=== PATIENT | male | born 1955 | race Caucasian/White ===

== ENCOUNTER 2019-01-17 11:48 | Inpatient (IN) | payer MEDICARE, OTHER ==
[~2019-01-17] VITALS: Ht 165.1 cm; Wt 55.2 kg
[2019-01-17] VITALS (7 sets, daily range): BP systolic 105–114; BP diastolic 64–76
[~2019-01-17 11:48] MED LIST: BACL20TA84 PO; GABA-330 PO; HYDR-4383 PO; LEVO50TA67 PO; NAPR-56 PO; SIN25C PO; TRAM50TA2 PO
[2019-01-17] MEDS ORDERED: ipratropium/albuterol 3ml nebule ONE (12:09)
[2019-01-17] MEDS ORDERED: normal saline 1000ML IV soln IVB ONE ×3 (12:10→13:35)
[2019-01-17] MEDS ORDERED: methylPREDNISolone sod succ 125mg/2ml vial IV ONE (12:10)
[2019-01-17] MEDS ORDERED: ipratropium/albuterol 3ml nebule NEB ONE (12:10)
[2019-01-17 12:21] LABS: BASOPHILS % (AUTO) 0.1 % (0-1); EOSINOPHILS % (AUTO) 0 % (0-6); HEMATOCRIT 46.7 % (42.0-52.0); LYMPHOCYTES # (AUTO) 0.7 X10'3 (1.1-4.8); LYMPHOCYTES % (AUTO) 2.5 % (21-51); MEAN CORPUSCULAR HEMOGLOBIN 31.2 PG (27.0-31.0); MEAN CORPUSCULAR HGB CONC 34.4 g/dL (33.0-36.5); MEAN CORPUSCULAR VOLUME 90.9 FL (78-98); MEAN PLATELET VOLUME 9.2 FL (7.4-10.4); MONOCYTES # (AUTO) 1.1 X10'3 (0-0.9); MONOCYTES % (AUTO) 4.1 % (2-12); NEUTROPHILS # (AUTO) 25.1 X10'3 (1.8-7.7); NEUTROPHILS % (AUTO) 93.3 % (42-75); PLATELET COUNT 92 X10'3 (140-440); RED BLOOD COUNT 5.14 X10'6 (4.70-6.10); RED CELL DISTRIBUTION WIDTH 13.2 % (11.5-14.5)
[2019-01-17 12:40] LABS: WHITE BLOOD COUNT 26.9 X10'3 (4.5-11.0)
[2019-01-17 12:42] LABS: ALANINE AMINOTRANSFERASE 98 U/L (12-78); ALBUMIN 3.3 G/DL (3.4-5.0); ALBUMIN/GLOBULIN RATIO 0.8 (1.1-1.5); ALKALINE PHOSPHATASE 82 IU/L (46-116); ANION GAP 12 (8-16); ASPARTATE AMINO TRANSFERASE 83 U/L (10-37); BLOOD UREA NITROGEN 43 MG/DL (7-18); BUN/CREATININE RATIO 14.5 (5.4-32.0); CALCIUM 8.8 MG/DL (8.5-10.1); CHLORIDE 97 MMOL/L (99-107); CREATININE 2.96 MG/DL (0.60-1.10); GLUCOSE 120 MG/DL (70-104); PLATELET ESTIMATE DECREASED; POTASSIUM 4.4 MMOL/L (3.5-5.1); SODIUM 135 MMOL/L (135-145); TOTAL CARBON DIOXIDE 26.1 MMOL/L (24-32); TOTAL CELLS COUNTED 100; TOTAL PROTEIN 7.3 G/DL (6.4-8.2); eGFR 22 ML/MIN
[2019-01-17] MEDS ORDERED: CefTRIAXone 2gm/D5W 50ml 50 ML IV ONE (12:50)
[2019-01-17 12:51] LABS: ABG BASE EXCESS -2.7 mmol/L (-2.0-3.0); ABG HCO3 19.4 mmol/L (22.0-26.0); ABG OXYGEN SATURATION 98.8 % (95-98); ABG PCO2 (T) 27.4 mmHg (35.0-45.0); ABG PH (T) 7.467 (7.350-7.450); ABG PO2 (T) 153.6 mmHg (83-108); ALLEN'S TEST Positive; FCOHb 0.9 % (0.5-1.5); FLOW 6 L/min; FMetHb 0.2 % (0.3-1.12); FO2Hb 97.7 % (94-100); RESPIRATORY RATE (OBSERVED) 28 b/min; TOTAL HEMOGLOBIN 15.1 G/dl (14.0-17.9)
[2019-01-17 12:52] LABS: ETHANOL < 0.010 GM/DL (0.0-0.010)
[2019-01-17] MEDS ORDERED: LORazepam 2 mg/ml vial IV ONE (12:55)
[2019-01-17] MEDS ORDERED: enoxaparin 100mg/ml syringe SUBCUT ONE (12:55)
[2019-01-17 13:18] LABS: D-DIMER 16.31 MG/L FEU (0-0.50)
[2019-01-17 13:30] LABS: URINE AMPHETAMINE SCREEN POSITIVE (Neg); URINE BARBITUATE SCREEN NEGATIVE (Neg); URINE BENZODIAZEPINES SCREEN NEGATIVE (Neg); URINE CANNABINOID SCREEN NEGATIVE (Neg); URINE COCAINE SCREEN NEGATIVE (Neg); URINE METHADONE SCREEN NEGATIVE (Neg); URINE OPIATE SCREEN NEGATIVE (Neg); URINE PHENCYCLIDINE SCREEN NEGATIVE (Neg)
[2019-01-17 14:05] LABS: CLARITY,URINE SLIGHTLY CLOUDY (Clear)
[2019-01-17 14:09] LABS: UA COLLECTION TYPE STRAIGHT CATH
[2019-01-17 14:10] LABS: COLOR,URINE ORANGE (Yellow)
[2019-01-17 14:13] LABS: AMORPHOUS URATES 1+; BACTERIA,URINE 1+ /HPF (Neg); MUCUS STRANDS FEW /LPF (Neg); RBC,URINE 0-2 /HPF (0-2); SQUAMOUS EPITHELIAL CELL,UR FEW /LPF (FEW); WBC,URINE 20-30 /HPF (0-4)
--- NOTE | 2019-01-17 14:43 | NUR ---
Central line placed by Dr. Camp and assisted by SÁNCHEZ Andrade.
[2019-01-17] MEDS ORDERED: NORepinephrine 8mg/ 250ml NS 250 ML IV SCH (15:00)
[2019-01-17] MEDS ORDERED: potassium Cl 20mEq/100mL bag 100 ML IV PRN ×2 (15:05)
[2019-01-17] MEDS ORDERED: Neutra Phos packet PO PRN (15:05)
[2019-01-17] MEDS ORDERED: ipratropium/albuterol 3ml nebule NEB PRN ×2 (15:05)
[2019-01-17] MEDS ORDERED: acetaminophen 325mg tablet PO PRN ×3 (15:05)
[2019-01-17] MEDS ORDERED: sodium phosphate inj. 15 MMOL in dextrose 5%-water 150 ML IV PRN (15:05)
[2019-01-17] MEDS ORDERED: magnesium Cl slow-release 64mg tablet PO PRN (15:05)
[2019-01-17] MEDS ORDERED: sodium phosphate inj. 30 MMOL in dextrose 5%-water 250 ML IV PRN (15:05)
[2019-01-17] MEDS ORDERED: magnesium 4gm in 100ml NS 100 ML IV PRN (15:05)
[2019-01-17] MEDS ORDERED: proCHLORperazine 10 MG/2 ml inj IV PRN (15:05)
[2019-01-17] MEDS ORDERED: potassium Cl 20 mEq SR tablet PO PRN ×3 (15:05)
[2019-01-17] MEDS: K, MAG and/or Phos replacement - Verify level? MC SCH (15:05)
[2019-01-17] MEDS ORDERED: acetaminophen 650mg rectal suppository RC PRN (15:05)
[2019-01-17] MEDS ORDERED: ondansetron/PF 4mg/2ml inj IV PRN (15:05)
[2019-01-17] MEDS ORDERED: potassium CL 10mEq/100ml bag 100 ML IV PRN ×2 (15:05)
[2019-01-17] MEDS ORDERED: magnesium 2GM in 50ml NS 50 ML IV PRN (15:05)
--- NOTE | 2019-01-17 15:13 | NUR ---
marketing technology coordinator at bedside for study as ordered.
[2019-01-17] MEDS ORDERED: NO HOME MEDS (15:34)
--- NOTE | 2019-01-17 15:35 | NUR ---
Call neighbor Ace [phone] for transport home.
[2019-01-17] MEDS: normal saline 1000ml 1,000 ML IV SCH (15:43)
[2019-01-17] MEDS: piperacillin/tazo 4.5gm/100ml 100 ML IV SCH (15:47)
--- NOTE | 2019-01-17 16:35 | NUR ---
Patient in room ED 4. I have received report from SÁNCHEZ Andrade and had the opportunity to ask questions and assume patient care.
--- NOTE | 2019-01-17 16:50 | NUR ---
PATIENT ARRIVED FROM ED ON 2MCG/MIN OF LEVO, a & o X3, DOING WELL. NO COMPLAINTS AT THIS TIME. BOWEL CARE GIVEN DUE TO NO BM FOR 1 WEEK. PATIENT TACHYCARDIC AND HAS THE SHIVERS, TEMP 37.3.
[2019-01-17] MEDS ORDERED: bisacodyl 10mg suppository rectal RC PRN (17:26)
[2019-01-17] MEDS ORDERED: polyethylene glycol 3350 17gm powd pack PO PRN (17:27)
[2019-01-17 17:57] LABS: TOTAL PROTEIN,URINE RANDOM 16.2 MG/DL
--- NOTE | 2019-01-17 18:03 | NUR ---
PATIENT LEVOPHED DRIP INCREASED FROM 2MCG/MIN TO 4MCG/MIN. IV SPREAD SHEET DOES NOT REFLECT THIS TITRATION. INFORMED PHARMACY OF ISSUE, THEY HAVE NO IDEA HOW TO FIX AND AND WHAT TO CHART TO MAKE THIS APPEAR RIGHT.
--- NOTE | 2019-01-17 18:25 | NUR ---
Patient in room CICU 2011. I have received report from Mihai POZO and had the opportunity to ask questions and assume patient care. Patient on room air and saturating at 98%. Vital signs are stable. Levophed infusing through central line per provider orders. Refer to IV spreadsheet for titration. Patient calm and playing on cell phone.
[2019-01-17] MEDS: ipratropium/albuterol 3ml nebule NEB SCH ×2 (19:04→23:10)
[2019-01-17] MEDS: famotidine/PF 10 mg/ml inj IV SCH (20:18)
[2019-01-17] MEDS: vancomycin inj 1,000 MG in normal saline 250ml IV soln 250 ML IV SCH (20:18)
[2019-01-17] MEDS: docusate sod 100mg capsule PO SCH (20:19)
[2019-01-17] MEDS: hydrocortisone sod succ/PF 100mg/2ml inj. IV SCH (20:19)
[2019-01-18] VITALS (24 sets, daily range): BP systolic 91–112; BP diastolic 51–70
[2019-01-18] MEDS: normal saline 1000ml 1,000 ML IV SCH ×4 (00:21→15:57)
[2019-01-18] MEDS: piperacillin/tazo 4.5gm/100ml 100 ML IV SCH ×4 (00:21→23:45)
[2019-01-18] MEDS: hydrocortisone sod succ/PF 100mg/2ml inj. IV SCH ×4 (02:10→19:52)
[2019-01-18 02:45] LABS: BASOPHILS % (AUTO) 0 % (0-1); EOSINOPHILS % (AUTO) 0 % (0-6); HEMOGLOBIN 12.9 g/dl (14.0-17.9); LYMPHOCYTES # (AUTO) 0.3 X10'3 (1.1-4.8); LYMPHOCYTES % (AUTO) 1.3 % (21-51); MEAN CORPUSCULAR HEMOGLOBIN 30.6 PG (27.0-31.0); MEAN CORPUSCULAR HGB CONC 34.1 g/dL (33.0-36.5); MEAN CORPUSCULAR VOLUME 89.8 FL (78-98); MEAN PLATELET VOLUME 9.3 FL (7.4-10.4); MONOCYTES # (AUTO) 0.5 X10'3 (0-0.9); MONOCYTES % (AUTO) 2.3 % (2-12); NEUTROPHILS # (AUTO) 19.6 X10'3 (1.8-7.7); NEUTROPHILS % (AUTO) 96.4 % (42-75); PLATELET COUNT 72 X10'3 (140-440); RED BLOOD COUNT 4.23 X10'6 (4.70-6.10); RED CELL DISTRIBUTION WIDTH 13.1 % (11.5-14.5); WHITE BLOOD COUNT 20.3 X10'3 (4.5-11.0)
[2019-01-18 02:51] LABS: ALANINE AMINOTRANSFERASE 60 U/L (12-78); ALBUMIN 2.5 G/DL (3.4-5.0); ALBUMIN/GLOBULIN RATIO 0.7 (1.1-1.5); ALKALINE PHOSPHATASE 58 IU/L (46-116); ANION GAP 10 (8-16); ASPARTATE AMINO TRANSFERASE 48 U/L (10-37); BILIRUBIN,TOTAL 0.6 MG/DL (0.1-1.0); BLOOD UREA NITROGEN 30 MG/DL (7-18); BUN/CREATININE RATIO 18.4 (5.4-32.0); CALCIUM 7.5 MG/DL (8.5-10.1); CHLORIDE 106 MMOL/L (99-107); CREATININE 1.63 MG/DL (0.60-1.10); GLUCOSE 204 MG/DL (70-104); POTASSIUM 3.7 MMOL/L (3.5-5.1); SODIUM 138 MMOL/L (135-145); TOTAL CARBON DIOXIDE 22.2 MMOL/L (24-32); TOTAL PROTEIN 5.9 G/DL (6.4-8.2); eGFR 43 ML/MIN
[2019-01-18 02:55] LABS: MAGNESIUM 1.4 MG/DL (1.5-2.4); PHOSPHORUS 1.7 MG/DL (2.3-4.5)
[2019-01-18] MEDS ORDERED: glucagon, human recombinant 1mg kit SUBCUT PRN (03:05)
[2019-01-18] MEDS ORDERED: dextrose 50%-water 50ml dispensing syringe IV PRN ×2 (03:05)
[2019-01-18] MEDS ORDERED: dextrose ORAL solution 15 GM/59 ML bottle PO PRN ×2 (03:05)
[2019-01-18] MEDS ORDERED: insulin regular, human vial - multi-dose SQ SCH (03:05)
[2019-01-18 03:27] LABS: TOTAL CELLS COUNTED 100
[2019-01-18 03:28] LABS: PLATELET ESTIMATE DECREASED
[2019-01-18 03:29] LABS: TOXIC GRANULATION 1+
[2019-01-18] MEDS: ipratropium/albuterol 3ml nebule NEB SCH ×6 (04:07→23:10)
--- NOTE | 2019-01-18 06:33 | NUR ---
Student documentation: I have reviewed and agree with all interventions, assessments performed and documented by Connie. Student Medication Administration: For this medication-pass time frame, all medication were reviewed, dispensed, administered and documented per hospital policy by Connie.
--- NOTE | 2019-01-18 06:34 | NUR ---
Problems reprioritized. Patient report given, questions answered & plan of care reviewed with Tate POZO.
[2019-01-18] MEDS: docusate sod 100mg capsule PO SCH ×2 (07:19→19:53)
[2019-01-18] MEDS: famotidine/PF 10 mg/ml inj IV SCH (07:19)
[2019-01-18] MEDS: vancomycin inj 1,000 MG in normal saline 250ml IV soln 250 ML IV SCH (07:20)
[2019-01-18] MEDS ORDERED: K and/or MAG REPLACEMENT MC SCH (08:00)
[2019-01-18] MEDS ORDERED: azithromycin/NS 500mg/250ml 250 ML IV SCH (08:00)
[2019-01-18] MEDS ORDERED: CefTRIAXone/D5W-Rocephin 1gm 50 ML IV SCH (08:00)
[2019-01-18] MEDS: K, MAG and/or Phos replacement - Verify level? MC SCH (08:00)
[2019-01-18] MEDS ORDERED: bisacodyl 5mg tablet.DR PO PRN (11:00)
[2019-01-18] MEDS ORDERED: lactulose 20gm/30ml cup PO PRN (11:00)
[2019-01-18] MEDS: insulin Lispro (HumaLOG) vial - multi-dose SQ SCH (14:34)
--- NOTE | 2019-01-18 19:16 | NUR ---
Patient in room CICU 2012. I have received report from Tate POZO and had the opportunity to ask questions and assume patient care. Patient up in his chair, vitals are stable, will continue to monitor.
[2019-01-18] MEDS: famotidine 20mg tablet PO SCH (19:52)
[2019-01-18] MEDS: lactobacillus rhamnosus 10,000 MMU CELLS/CAPSULE PO SCH (19:52)
[2019-01-18] MEDS: tamsulosin 0.4mg capsule PO SCH (20:07)
[2019-01-18] MEDS: insulin glargine (Lantus) pen - multi-dose SQ SCH (20:21)
[2019-01-19] VITALS (17 sets, daily range): BP systolic 100–124; BP diastolic 60–89
[2019-01-19] MEDS: normal saline 1000ml 1,000 ML IV SCH ×2 (00:18→05:44)
[2019-01-19] MEDS: hydrocortisone sod succ/PF 100mg/2ml inj. IV SCH ×4 (02:24→20:15)
[2019-01-19] MEDS: ipratropium/albuterol 3ml nebule NEB SCH ×6 (02:59→23:42)
[2019-01-19 04:40] LABS: BASOPHILS % (AUTO) 0 % (0-1); EOSINOPHILS % (AUTO) 0 % (0-6); LYMPHOCYTES # (AUTO) 0.3 X10'3 (1.1-4.8); LYMPHOCYTES % (AUTO) 2.2 % (21-51); MEAN CORPUSCULAR HEMOGLOBIN 31.1 PG (27.0-31.0); MEAN CORPUSCULAR HGB CONC 34.4 g/dL (33.0-36.5); MEAN CORPUSCULAR VOLUME 90.5 FL (78-98); MEAN PLATELET VOLUME 9.2 FL (7.4-10.4); MONOCYTES # (AUTO) 0.3 X10'3 (0-0.9); MONOCYTES % (AUTO) 2.4 % (2-12); NEUTROPHILS # (AUTO) 12.4 X10'3 (1.8-7.7); NEUTROPHILS % (AUTO) 95.4 % (42-75); PLATELET COUNT 66 X10'3 (140-440); RED BLOOD COUNT 3.86 X10'6 (4.70-6.10)
[2019-01-19 04:46] LABS: ALANINE AMINOTRANSFERASE 49 U/L (12-78); ALBUMIN 2.5 G/DL (3.4-5.0); ALBUMIN/GLOBULIN RATIO 0.8 (1.1-1.5); ALKALINE PHOSPHATASE 47 IU/L (46-116); ANION GAP 8 (8-16); ASPARTATE AMINO TRANSFERASE 30 U/L (10-37); BILIRUBIN,TOTAL 0.5 MG/DL (0.1-1.0); BLOOD UREA NITROGEN 20 MG/DL (7-18); BUN/CREATININE RATIO 16.4 (5.4-32.0); CALCIUM 7.5 MG/DL (8.5-10.1); CHLORIDE 112 MMOL/L (99-107); CREATININE 1.22 MG/DL (0.60-1.10); GLUCOSE 158 MG/DL (70-104); MAGNESIUM 1.8 MG/DL (1.5-2.4); PHOSPHORUS 2.6 MG/DL (2.3-4.5); SODIUM 144 MMOL/L (135-145); TOTAL CARBON DIOXIDE 23.7 MMOL/L (24-32); TOTAL PROTEIN 5.6 G/DL (6.4-8.2); eGFR 60 ML/MIN
--- NOTE | 2019-01-19 06:09 | NUR ---
Lab called, patient has critical K+ of 3.0
--- NOTE | 2019-01-19 06:30 | NUR ---
Patient in room CICU 2011. I have received report from gwendolyn and had the opportunity to ask questions and assume patient care.
--- NOTE | 2019-01-19 06:35 | NUR ---
Problems reprioritized. Patient report given, questions answered & plan of care reviewed with Christina POZO.
[2019-01-19] MEDS: K, MAG and/or Phos replacement - Verify level? MC SCH (08:00)
[2019-01-19] MEDS: docusate sod 100mg capsule PO SCH ×2 (08:09→20:00)
[2019-01-19] MEDS: lactobacillus rhamnosus 10,000 MMU CELLS/CAPSULE PO SCH ×2 (08:09→20:16)
[2019-01-19] MEDS: vancomycin/NS 1 GM ADD-VANTAGE 250 ML IV SCH (08:09)
[2019-01-19] MEDS: famotidine 20mg tablet PO SCH ×2 (08:09→20:16)
[2019-01-19] MEDS: piperacillin/tazo 4.5gm/100ml 100 ML IV SCH ×2 (08:09→15:49)
[2019-01-19] MEDS: lactulose 20gm/30ml cup PO PRN ×2 (08:11→13:54)
[2019-01-19] MEDS: potassium Cl 20 mEq SR tablet PO PRN ×2 (08:54→13:54)
[2019-01-19] MEDS: insulin Lispro (HumaLOG) vial - multi-dose SQ SCH ×2 (09:00→14:47)
[2019-01-19] MEDS ORDERED: pneumococcal 23-VAL P-sac vacc 25 mcg/0.5ml vial IMVAC ONE (10:00)
[2019-01-19] MEDS ORDERED: FLU VACC QS2019-20 36MOS UP/PF 60 MCG/0.5 ML SYRINGE IMVAC ONE (10:00)
--- NOTE | 2019-01-19 10:04 | NUR ---
pt awake and alert. on phone with girlfriend. pt tearful over remembering that his last year in the same room as hes in now.cheyenne hernandez
[2019-01-19] MEDS ORDERED: lactulose 20gm/30ml cup PO PRN (15:05)
--- NOTE | 2019-01-19 15:06 | NUR ---
Initial: Pt admitted for SOB r/t respiratory failure. Per MD note, pt has a hx of meth use. Pt on hyperglycemic protocol for elevated BG, possibly due to hydrocortisone and dx of sepsis syndrome. Pt PO intake 75-100% on a carb controlled diet, meeting nutrient needs. LBM 01/10, receiving multiple routine bowel care meds for constipation. No nutrition diagnosis at this time. Will continue to follow. Recommendations: 1. Continue Carb controlled diet 2. Continue routine bowel care 3. Weight per rx Addendum: 01/19/19 at 1507 by Wing Rick SALOMON Amended: Links added.
--- NOTE | 2019-01-19 16:40 | NUR ---
Received report from Christina POZO in CICU. Patient arrived by wheelchair, ambulated to PCU bed with stand by assist. Oriented to room, call light within reach. 2 RN skin check complete. All patient's needs met at this time. Vital signs BP 117/78, HR 86, R 18, Temp 97.8, 02 97 RA.
--- NOTE | 2019-01-19 16:53 | NUR ---
cl dcd, fc dcd/ report given to nimo. pt tx by suly to 3022. k replacement complete. k ordered for 1999
--- NOTE | 2019-01-19 18:15 | NUR ---
Patient in room U 3022. I have received report from Debbie Francisco RN and had the opportunity to ask questions and assume patient care. Patient sitting up in bed, visiting with friend at bedside.
--- NOTE | 2019-01-19 18:42 | NUR ---
Problems reprioritized. Patient report given, questions answered & plan of care reviewed with Sarah POZO. All patient's needs met at this time.
[2019-01-19] MEDS: tamsulosin 0.4mg capsule PO SCH (20:16)
[2019-01-19] MEDS: insulin glargine (Lantus) pen - multi-dose SQ SCH (20:44)
[2019-01-20] MEDS: piperacillin/tazo 4.5gm/100ml 100 ML IV SCH ×2 (00:30→10:26)
[2019-01-20] MEDS: hydrocortisone sod succ/PF 100mg/2ml inj. IV SCH ×2 (02:18→08:17)
[2019-01-20 03:00] VITALS: BP 133/83
[2019-01-20] MEDS: ipratropium/albuterol 3ml nebule NEB SCH ×3 (03:00→11:00)
[2019-01-20 05:06] LABS: BASOPHILS % (AUTO) 0.1 % (0-1); EOSINOPHILS % (AUTO) 0 % (0-6); HEMATOCRIT 36.2 % (42.0-52.0); HEMOGLOBIN 12.4 g/dl (14.0-17.9); LYMPHOCYTES # (AUTO) 0.5 X10'3 (1.1-4.8); LYMPHOCYTES % (AUTO) 4.1 % (21-51); MEAN CORPUSCULAR HEMOGLOBIN 31.5 PG (27.0-31.0); MEAN CORPUSCULAR HGB CONC 34.3 g/dL (33.0-36.5); MEAN CORPUSCULAR VOLUME 91.8 FL (78-98); MEAN PLATELET VOLUME 9.4 FL (7.4-10.4); MONOCYTES # (AUTO) 0.3 X10'3 (0-0.9); MONOCYTES % (AUTO) 2.3 % (2-12); NEUTROPHILS # (AUTO) 10.7 X10'3 (1.8-7.7); NEUTROPHILS % (AUTO) 93.5 % (42-75); PLATELET COUNT 71 X10'3 (140-440); RED BLOOD COUNT 3.94 X10'6 (4.70-6.10); WHITE BLOOD COUNT 11.5 X10'3 (4.5-11.0)
[2019-01-20 05:26] LABS: ALANINE AMINOTRANSFERASE 58 U/L (12-78); ALBUMIN 2.6 G/DL (3.4-5.0); ALBUMIN/GLOBULIN RATIO 0.8 (1.1-1.5); ALKALINE PHOSPHATASE 53 IU/L (46-116); ANION GAP 9 (8-16); ASPARTATE AMINO TRANSFERASE 41 U/L (10-37); BILIRUBIN,TOTAL 0.5 MG/DL (0.1-1.0); BLOOD UREA NITROGEN 24 MG/DL (7-18); BUN/CREATININE RATIO 20.5 (5.4-32.0); CALCIUM 8.3 MG/DL (8.5-10.1); CHLORIDE 111 MMOL/L (99-107); CREATININE 1.17 MG/DL (0.60-1.10); GLUCOSE 96 MG/DL (70-104); MAGNESIUM 1.8 MG/DL (1.5-2.4); POTASSIUM 3.5 MMOL/L (3.5-5.1); SODIUM 143 MMOL/L (135-145); TOTAL CARBON DIOXIDE 23.4 MMOL/L (24-32); TOTAL PROTEIN 5.9 G/DL (6.4-8.2); eGFR 63 ML/MIN
[2019-01-20 06:00] VITALS: BP 132/86
--- NOTE | 2019-01-20 06:32 | NUR ---
Problems reprioritized. Patient report given, questions answered & plan of care reviewed with Mis POZO.
--- NOTE | 2019-01-20 06:34 | NUR ---
Patient in room PCU 3022. I have received report from Sarah POZO and had the opportunity to ask questions and assume patient care.
[2019-01-20] MEDS: K, MAG and/or Phos replacement - Verify level? MC SCH (08:00)
[2019-01-20] MEDS: lactobacillus rhamnosus 10,000 MMU CELLS/CAPSULE PO SCH (08:17)
[2019-01-20] MEDS: docusate sod 100mg capsule PO SCH (08:17)
[2019-01-20] MEDS: famotidine 20mg tablet PO SCH (08:17)
[2019-01-20] MEDS: vancomycin/NS 1 GM ADD-VANTAGE 250 ML IV SCH (08:18)
[2019-01-20] MEDS ORDERED: prednisone 10mg tablet PO SCH (09:15)
[2019-01-20] MEDS ORDERED: FLU VACC QS2019-20 36MOS UP/PF 60 MCG/0.5 ML SYRINGE IMVAC ONE (10:00)
[2019-01-20] MEDS ORDERED: pneumococcal 23-VAL P-sac vacc 25 mcg/0.5ml vial IMVAC ONE (10:00)
[2019-01-20 11:00] VITALS: BP 125/82
--- NOTE | 2019-01-20 14:00 | NUR ---
Went in to check on patient. Patient had removed PIV & site monitor and completely dressed. Patient stated he is leaving, that he does not want to miss another Thanksgiving with family and that there is nothing else that can be done here. Patient is aware of the risks of leaving against medical advice and continues to precede to wanting to leave. Dr. Trent aware patient is leaving AMA and paperwork has been signed by patient.
--- NOTE | 2019-01-20 15:01 | NUR ---
Occurrence report filed for patient AMA # [id number]
[2019-01-20] MEDS ORDERED: vancomycin/NS 1 GM ADD-VANTAGE 250 ML IV SCH (20:00)
[2019-01-21] MEDS ORDERED: VANCOMYCIN LEVEL IV ONE ×2 (07:30→19:30)
== END 2019-01-20 14:43 | disposition left against medical advice (07) | DRG 871 ==
LOC: ER 11:49 → ED HOLD 15:17 → CICU 2S 16:58 → PCU 3S 01-19 16:40
PROVIDERS: ADMIT Internal Medicine; ATTEND Internal Medicine Critical Care Medicine
PROC: 3E0234Z Introduction of Serum, Toxoid and Vaccine into Muscle, Percutaneous Approach (ICD-10-PCS; principal; 2019-01-19)
DX: A41.9 Sepsis, unspecified organism (principal); R65.21 Severe sepsis with septic shock; J96.01 Acute respiratory failure with hypoxia; N39.0 Urinary tract infection, site not specified; J44.1 Chronic obstructive pulmonary disease with (acute) exacerbation; N17.9 Acute kidney failure, unspecified; J44.0 Chronic obstructive pulmonary disease with (acute) lower respiratory infection; I38 Endocarditis, valve unspecified; F15.10 Other stimulant abuse, uncomplicated; F43.10 Post-traumatic stress disorder, unspecified; I10 Essential (primary) hypertension; Z53.29 Procedure and treatment not carried out because of patient's decision for other reasons; Z87.891 Personal history of nicotine dependence; F41.9 Anxiety disorder, unspecified; Z56.0 Unemployment, unspecified; G89.29 Other chronic pain; M54.9 Dorsalgia, unspecified; Z90.49 Acquired absence of other specified parts of digestive tract; Z23 Encounter for immunization
CPT/HCPCS: 36415; 36556; 36600; 71045; 74176; 76937; 80053; 80305; 80320; 81001; 82570; 82803; 82948; 83036; 83605; 83735; 83880; 84100; 84132; 84133; 84145; 84156; 84443; 84484; 85018; 85025; 85379; 87040; 87081; 87088; 90732; 93005; 93306; 94640; 94760; 96365; 96372; 96375; 97110; 97161; 97530; 99291; G0378; J0696; J1650; J1720; J1815; J2060; J2543; J2930; J3370; J3490; J7050